=== PATIENT | male | born 1960 ===

== ENCOUNTER 2021-05-15 12:34 | Inpatient (IN) ==
[2021-05-15 13:36] LABS: PO2 Arterial 133 mmHg (80-100)
[2021-05-15 13:54] LABS: PCO2 Arterial 96 mmHg (35-45)
[2021-05-15 14:06] LABS: ABS Lymphocytes 0.2 10^3/ul (1.0-4.8); ABS Monocytes 0.1 10^3/ul (0-0.8); Eosinophil % 0.5 %; Hematocrit 48 % (42-52); Hemoglobin 14.4 g/dL (14.0-18.0); Lymphocyte % 2.7 %; Mean Corpuscular HGB Conc 30 g/dL (31-36); Mean Corpuscular Hemoglobin 27 pg (27-31); Mean Corpuscular Volume 88 fL (80-94); Mean Platelet Volume 8.3 fL (7.4-10.4); Nucleated Red Blood Cells % 0.1; Platelet Count 142 10^3/uL (150-450); Red Blood Count 5.42 10^6 /uL (4.18-5.48); Red Cell Distribution Width 23 % (10-15); White Blood Count 6.3 10^3/uL (3.5-10.8)
[2021-05-15 14:08] LABS: ALT 25 U/L (7-52); AST 9 U/L (13-39); Albumin 4.4 g/dL (3.2-5.2); Albumin/Globulin Ratio 1.8 (1-3); Alkaline Phosphatase 100 U/L (35-149); Blood Urea Nitrogen 24 mg/dL (6-24); C Reactive Protein 4.42 mg/L (<8.01); Chloride 94 mmol/L (101-111); Globulin 2.5 g/dL (2-4); Glucose 146 mg/dL (70-100); Potassium 4.8 mmol/L (3.5-5.0); Sodium 140 mmol/L (135-145); Total Protein 6.9 g/dL (6.4-8.9); eGFR CKD-EPI 82.1 (>60)
[2021-05-15 14:15] LABS: Activated Partial Thrombo Time 30.8 seconds (26.0-38.0); INR 1.01 (0.86-1.15)
[2021-05-15 14:20] LABS: Anion Gap 2 mmol/L (2-11); CO2 Carbon Dioxide 44 mmol/L (22-32)
[2021-05-15 14:21] LABS: LDH 234 U/L (140-271)
[2021-05-15] MEDS ORDERED: Aztreonam 2 GM in NS 0.9% 50 ML 50 ML IVPB ONE (14:21)
[2021-05-15] MEDS ORDERED: Azithromycin 500 mg/250 ml NS 500 MG/250 ML BAG IVPB ONE (14:23)
[2021-05-15 15:35] LABS: PO2 Arterial 125 mmHg (80-100)
[2021-05-15 15:44] LABS: PCO2 Arterial 93 mmHg (35-45)
[2021-05-15 15:52] LABS: Troponin I 0.03 ng/mL (<0.03)
[2021-05-15 15:52] LABS: Urine Appearance Clear; Urine Bilirubin Negative (Negative); Urine Blood Negative (Negative); Urine Color Yellow; Urine Glucose Negative (Negative); Urine Ketones Negative (Negative); Urine Nitrite Negative (Negative); Urine Protein 1+(30 mg/dL) (Negative); Urine Urobilinogen Negative (Negative)
[2021-05-15 15:56] LABS: Urine Bacteria Absent (Absent); Urine Red Blood Cell Trace(0-2/hpf) (Absent); Urine Sperm Present (Absent); Urine Squamous Epithelial Cell Present (Absent); Urine White Blood Cell Trace(0-5/hpf) (Absent)
[2021-05-15] MEDS: Enoxaparin 40 MG/0.4 ML SYR SUBCUT SCH (17:24)
[2021-05-15] MEDS ORDERED: methylPREDNISolone SOD 40 mg/ml 1 ml VIAL IV ONE (18:00)
[2021-05-15] MEDS ORDERED: Albuterol/Ipratropium NEB.SOL (2.5/0.5 MG) 3 ML NEB.SOLN INH ONE ×2 (18:13→20:19)
[2021-05-15 18:15] LABS: Urine Appearance Clear; Urine Bilirubin Negative (Negative); Urine Blood Negative (Negative); Urine Color Yellow; Urine Glucose Negative (Negative); Urine Ketones Negative (Negative); Urine Nitrite Negative (Negative); Urine Protein 1+(30 mg/dL) (Negative); Urine Specific Gravity 1.011 (1.002-1.030); Urine Urobilinogen Negative (Negative)
[2021-05-15 18:31] LABS: Urine Bacteria Absent (Absent); Urine Red Blood Cell Trace(0-2/hpf) (Absent); Urine Sperm Present (Absent); Urine White Blood Cell Trace(0-5/hpf) (Absent)
[2021-05-15] MEDS: SPIRIVA Respimat (tiotropium) 2.5 mcg/inh Inhaler INH SCH (20:46)
[2021-05-16] MEDS ORDERED: Furosemide 40 mg/4 ml IV VIAL IV SLOW PU ONE (01:27)
[2021-05-16] MEDS ORDERED: Furosemide 40 mg/4 ml IV VIAL ONE (01:35)
[2021-05-16] MEDS: methylPREDNISolone SOD 40 mg/ml 1 ml VIAL IV SCH (01:40)
[2021-05-16 05:33] LABS: ABS Lymphocytes 0.2 10^3/ul (1.0-4.8); ABS Monocytes 0.1 10^3/ul (0-0.8); ABS Neutrophils 4.8 10^3/ul (1.5-7.7); Eosinophil % 0.1 %; Hematocrit 38 % (42-52); Lymphocyte % 3.1 %; Mean Corpuscular HGB Conc 31 g/dL (31-36); Mean Corpuscular Hemoglobin 27 pg (27-31); Mean Corpuscular Volume 86 fL (80-94); Mean Platelet Volume 8.1 fL (7.4-10.4); Nucleated Red Blood Cells % 0.1; Platelet Count 113 10^3/uL (150-450); Red Blood Count 4.46 10^6 /uL (4.18-5.48); Red Cell Distribution Width 22 % (10-15); White Blood Count 5.1 10^3/uL (3.5-10.8)
[2021-05-16 05:56] LABS: ALT 15 U/L (7-52); Albumin 3.2 g/dL (3.2-5.2); Albumin/Globulin Ratio 1.8 (1-3); Alkaline Phosphatase 68 U/L (35-149); Blood Urea Nitrogen 24 mg/dL (6-24); CO2 Carbon Dioxide 40 mmol/L (22-32); Calcium 7.2 mg/dL (8.6-10.3); Chloride 99 mmol/L (101-111); Globulin 1.8 g/dL (2-4); Glucose 86 mg/dL (70-100); Magnesium 1.7 mg/dL (1.9-2.7); Sodium 142 mmol/L (135-145); eGFR CKD-EPI 98.6 (>60)
[2021-05-16 05:59] LABS: Anion Gap 3 mmol/L (2-11)
[2021-05-16] MEDS ORDERED: Magnesium Sulfate IV 3 GM in NS 0.9% 100 ml BAG 100 ML IVPB ONE (06:00)
[2021-05-16 08:02] LABS: Phosphorus 3.7 mg/dL (2.5-5.0); Potassium Redraw 4.8 mmol/L (3.5-5.0)
[2021-05-16] MEDS ORDERED: Perflutren Lipid Microsphere 3 ML VIAL ONE (08:36)
[2021-05-16] MEDS: DOXYcycline 100 MG in NS 0.9% 250 ml 250 ML IVPB SCH ×2 (10:29→21:26)
[2021-05-16] MEDS: Aspirin EC 81 mg TAB.EC (enteric coated) PO SCH (10:31)
[2021-05-16] MEDS: Albuterol HFA INHALER 8 gm MDI INH PRN (11:54)
[2021-05-16 14:28] LABS: PO2 Arterial 78 mmHg (80-100)
[2021-05-16 14:34] LABS: PCO2 Arterial 80 mmHg (35-45)
[2021-05-16] MEDS: Enoxaparin 40 MG/0.4 ML SYR SUBCUT SCH (17:58)
[2021-05-16] MEDS: SPIRIVA Respimat (tiotropium) 2.5 mcg/inh Inhaler INH SCH (19:43)
[2021-05-17 05:23] LABS: Hematocrit 40 % (42-52); Hemoglobin 12.3 g/dL (14.0-18.0); Mean Corpuscular HGB Conc 31 g/dL (31-36); Mean Corpuscular Hemoglobin 27 pg (27-31); Mean Corpuscular Volume 88 fL (80-94); Platelet Count 134 10^3/uL (150-450); Red Blood Count 4.53 10^6 /uL (4.18-5.48); Red Cell Distribution Width 23 % (10-15); White Blood Count 8.6 10^3/uL (3.5-10.8)
[2021-05-17 05:33] LABS: Calcium 7.9 mg/dL (8.6-10.3); Magnesium 2.2 mg/dL (1.9-2.7); Phosphorus 3.4 mg/dL (2.5-5.0); Potassium 4.4 mmol/L (3.5-5.0); eGFR CKD-EPI 72.7 (>60)
[2021-05-17] MEDS: DOXYcycline 100 MG in NS 0.9% 250 ml 250 ML IVPB SCH ×2 (08:44→20:22)
[2021-05-17] MEDS: Aspirin EC 81 mg TAB.EC (enteric coated) PO SCH (09:01)
[2021-05-17] MEDS: methylPREDNISolone SOD 40 mg/ml 1 ml VIAL IV SCH (17:31)
[2021-05-17] MEDS: Enoxaparin 40 MG/0.4 ML SYR SUBCUT SCH ×2 (18:14→18:33)
[2021-05-17] MEDS: SPIRIVA Respimat (tiotropium) 2.5 mcg/inh Inhaler INH SCH (20:11)
[2021-05-18 06:46] LABS: ABS Lymphocytes 0.8 10^3/ul (1.0-4.8); ABS Monocytes 0.4 10^3/ul (0-0.8); ABS Neutrophils 4.7 10^3/ul (1.5-7.7); Eosinophil % 0.6 %; Hematocrit 41 % (42-52); Hemoglobin 12.5 g/dL (14.0-18.0); Lymphocyte % 13.3 %; Mean Corpuscular HGB Conc 31 g/dL (31-36); Mean Corpuscular Hemoglobin 27 pg (27-31); Mean Corpuscular Volume 89 fL (80-94); Platelet Count 119 10^3/uL (150-450); Red Blood Count 4.58 10^6 /uL (4.18-5.48); Red Cell Distribution Width 22 % (10-15)
[2021-05-18 07:03] LABS: Blood Urea Nitrogen 23 mg/dL (6-24); Chloride 97 mmol/L (101-111); Glucose 89 mg/dL (70-100); Magnesium 2.1 mg/dL (1.9-2.7); Potassium 4.5 mmol/L (3.5-5.0); Sodium 143 mmol/L (135-145); eGFR CKD-EPI 96.9 (>60)
[2021-05-18 07:25] LABS: CO2 Carbon Dioxide 46 mmol/L (22-32)
[2021-05-18] MEDS: Aspirin EC 81 mg TAB.EC (enteric coated) PO SCH (08:53)
[2021-05-18] MEDS: DOXYcycline 100 MG in NS 0.9% 250 ml 250 ML IVPB SCH (08:53)
[2021-05-18] MEDS: Enoxaparin 40 MG/0.4 ML SYR SUBCUT SCH (16:10)
[2021-05-18] MEDS: SPIRIVA Respimat (tiotropium) 2.5 mcg/inh Inhaler INH SCH (20:07)
[2021-05-19] MEDS: Aspirin EC 81 mg TAB.EC (enteric coated) PO SCH (10:08)
[2021-05-19 10:14] LABS: PO2 Arterial 143 mmHg (80-100)
[2021-05-19 10:20] LABS: PCO2 Arterial 102 mmHg (35-45)
[2021-05-19 11:38] LABS: Blood Urea Nitrogen 28 mg/dL (6-24); CO2 Carbon Dioxide 38 mmol/L (22-32); Calcium 8.2 mg/dL (8.6-10.3); Chloride 97 mmol/L (101-111); Glucose 99 mg/dL (70-100); Sodium 137 mmol/L (135-145); eGFR CKD-EPI 96.6 (>60)
[2021-05-19 12:07] LABS: PO2 Arterial 294 mmHg (80-100)
[2021-05-19 12:11] LABS: PCO2 Arterial 103 mmHg (35-45)
[2021-05-19 12:32] LABS: Anion Gap 2 mmol/L (2-11)
[2021-05-19 14:56] LABS: PO2 Arterial 76 mmHg (80-100)
[2021-05-19 14:58] LABS: PCO2 Arterial 92 mmHg (35-45)
[2021-05-19] MEDS: Enoxaparin 40 MG/0.4 ML SYR SUBCUT SCH (18:23)
[2021-05-19] MEDS: SPIRIVA Respimat (tiotropium) 2.5 mcg/inh Inhaler INH SCH (20:07)
[2021-05-19] MEDS: Mometasone/Formoter 200/5 MDI INH SCH (21:54)
[2021-05-20 05:52] LABS: ABS Eosinophils 0.1 10^3/ul (0-0.6); ABS Lymphocytes 0.8 10^3/ul (1.0-4.8); ABS Monocytes 0.6 10^3/ul (0-0.8); ABS Neutrophils 6.2 10^3/ul (1.5-7.7); Eosinophil % 1.4 %; Hematocrit 44 % (42-52); Hemoglobin 13.6 g/dL (14.0-18.0); Lymphocyte % 10.5 %; Mean Corpuscular HGB Conc 31 g/dL (31-36); Mean Corpuscular Hemoglobin 28 pg (27-31); Mean Corpuscular Volume 89 fL (80-94); Platelet Count 121 10^3/uL (150-450); Red Blood Count 4.92 10^6 /uL (4.18-5.48); Red Cell Distribution Width 22 % (10-15); White Blood Count 7.7 10^3/uL (3.5-10.8)
[2021-05-20 05:58] LABS: Calcium 8.6 mg/dL (8.6-10.3); Chloride 98 mmol/L (101-111); Potassium 5.1 mmol/L (3.5-5.0); Sodium 140 mmol/L (135-145)
[2021-05-20 05:59] LABS: CO2 Carbon Dioxide 43 mmol/L (22-32)
[2021-05-20 06:03] LABS: Blood Urea Nitrogen 25 mg/dL (6-24); Glucose 127 mg/dL (70-100); eGFR CKD-EPI 97.2 (>60)
[2021-05-20] MEDS: Mometasone/Formoter 200/5 MDI INH SCH ×2 (07:35→20:16)
[2021-05-20] MEDS: Aspirin EC 81 mg TAB.EC (enteric coated) PO SCH (07:39)
[2021-05-20] MEDS: Enoxaparin 40 MG/0.4 ML SYR SUBCUT SCH (15:58)
[2021-05-20] MEDS: SPIRIVA Respimat (tiotropium) 2.5 mcg/inh Inhaler INH SCH (20:16)
[2021-05-21] MEDS: Mometasone/Formoter 200/5 MDI INH SCH ×2 (07:45→19:10)
[2021-05-21] MEDS: Aspirin EC 81 mg TAB.EC (enteric coated) PO SCH (08:55)
[2021-05-21 09:52] LABS: ABS Eosinophils 0.1 10^3/ul (0-0.6); ABS Monocytes 0.5 10^3/ul (0-0.8); ABS Neutrophils 3.6 10^3/ul (1.5-7.7); Eosinophil % 2.4 %; Hematocrit 42 % (42-52); Hemoglobin 12.6 g/dL (14.0-18.0); Lymphocyte % 19.5 %; Mean Corpuscular HGB Conc 30 g/dL (31-36); Mean Corpuscular Hemoglobin 27 pg (27-31); Mean Corpuscular Volume 89 fL (80-94); Mean Platelet Volume 7.8 fL (7.4-10.4); Platelet Count 120 10^3/uL (150-450); Red Blood Count 4.67 10^6 /uL (4.18-5.48); Red Cell Distribution Width 22 % (10-15); White Blood Count 5.2 10^3/uL (3.5-10.8)
[2021-05-21 10:09] LABS: Blood Urea Nitrogen 21 mg/dL (6-24); Calcium 8.9 mg/dL (8.6-10.3); Chloride 95 mmol/L (101-111); Glucose 138 mg/dL (70-100); Magnesium 1.9 mg/dL (1.9-2.7); Potassium 4.4 mmol/L (3.5-5.0); Sodium 140 mmol/L (135-145); eGFR CKD-EPI 101.2 (>60)
[2021-05-21 10:17] LABS: CO2 Carbon Dioxide 45 mmol/L (22-32)
[2021-05-21] MEDS: Enoxaparin 40 MG/0.4 ML SYR SUBCUT SCH (17:42)
[2021-05-21] MEDS: SPIRIVA Respimat (tiotropium) 2.5 mcg/inh Inhaler INH SCH (19:08)
[2021-05-22 06:18] LABS: ABS Eosinophils 0.1 10^3/ul (0-0.6); ABS Monocytes 0.6 10^3/ul (0-0.8); ABS Neutrophils 4.4 10^3/ul (1.5-7.7); CO2 Carbon Dioxide 38 mmol/L (22-32); Calcium 8.2 mg/dL (8.6-10.3); Chloride 99 mmol/L (101-111); Eosinophil % 1.6 %; Hematocrit 41 % (42-52); Hemoglobin 12.7 g/dL (14.0-18.0); Lymphocyte % 16.7 %; Magnesium 1.9 mg/dL (1.9-2.7); Mean Corpuscular HGB Conc 31 g/dL (31-36); Mean Corpuscular Hemoglobin 27 pg (27-31); Mean Corpuscular Volume 88 fL (80-94); Mean Platelet Volume 8.8 fL (7.4-10.4); Nucleated Red Blood Cells % 0.1; Platelet Count 120 10^3/uL (150-450); Red Blood Count 4.68 10^6 /uL (4.18-5.48); Red Cell Distribution Width 22 % (10-15); Sodium 140 mmol/L (135-145)
[2021-05-22 06:24] LABS: Blood Urea Nitrogen 19 mg/dL (6-24); Glucose 96 mg/dL (70-100); eGFR CKD-EPI 96.6 (>60)
[2021-05-22 06:45] LABS: Anion Gap 3 mmol/L (2-11)
[2021-05-22] MEDS: Mometasone/Formoter 200/5 MDI INH SCH ×2 (07:23→20:11)
[2021-05-22] MEDS: Aspirin EC 81 mg TAB.EC (enteric coated) PO SCH (08:53)
[2021-05-22] MEDS: Enoxaparin 40 MG/0.4 ML SYR SUBCUT SCH (17:23)
[2021-05-22] MEDS: Albuterol HFA INHALER 8 gm MDI INH PRN (20:11)
[2021-05-22] MEDS: SPIRIVA Respimat (tiotropium) 2.5 mcg/inh Inhaler INH SCH (20:17)
[2021-05-23] MEDS: Mometasone/Formoter 200/5 MDI INH SCH (07:36)
[2021-05-23] MEDS: Aspirin EC 81 mg TAB.EC (enteric coated) PO SCH (09:22)
[2021-05-23 10:01] LABS: ABS Eosinophils 0.1 10^3/ul (0-0.6); ABS Lymphocytes 0.9 10^3/ul (1.0-4.8); ABS Monocytes 0.4 10^3/ul (0-0.8); ABS Neutrophils 3.8 10^3/ul (1.5-7.7); Eosinophil % 1.7 %; Hematocrit 42 % (42-52); Hemoglobin 12.8 g/dL (14.0-18.0); Lymphocyte % 17.5 %; Mean Corpuscular HGB Conc 31 g/dL (31-36); Mean Corpuscular Hemoglobin 27 pg (27-31); Mean Corpuscular Volume 89 fL (80-94); Mean Platelet Volume 8.5 fL (7.4-10.4); Platelet Count 109 10^3/uL (150-450); Red Blood Count 4.69 10^6 /uL (4.18-5.48); Red Cell Distribution Width 23 % (10-15); White Blood Count 5.3 10^3/uL (3.5-10.8)
[2021-05-23 10:17] LABS: CO2 Carbon Dioxide 37 mmol/L (22-32); Calcium 8.7 mg/dL (8.6-10.3); Chloride 98 mmol/L (101-111); Sodium 140 mmol/L (135-145)
[2021-05-23 10:22] LABS: Blood Urea Nitrogen 17 mg/dL (6-24); Glucose 126 mg/dL (70-100); eGFR CKD-EPI 96.9 (>60)
[2021-05-23 11:46] VITALS: BP 131/78
[2021-05-23 11:49] LABS: Anion Gap 5 mmol/L (2-11)
== END 2021-05-23 16:40 | disposition home or self-care (01) | DRG 133 ==
LOC: ED 12:34 → EDHOLD 15:57 → SUATTDRO 15:57 → ICU 16:11 → MEDTELE 05-17 17:38 → ICU 05-19 13:34 → MED 05-20 20:29
PROVIDERS: ADMIT Internal Medicine Critical Care Medicine; ATTEND Student in an Organized Health Care Education/Training Program